=== PATIENT | male | born 1945 | race African-American/Black ===

== ENCOUNTER 2018-11-21 11:59 | Inpatient (IN) | payer OTHER, MEDICAID ==
[~2018-11-21] VITALS: Ht 182.9 cm; Wt 118.8 kg
[~2018-11-21 11:59] MED LIST: ALBU18HF2 IH; ASPI-1393 PO; ATOR10TA69 PO; CETI10TA6 PO; FLUT1DIS6 IH; FURO40TA5 PO; LOSA50TA41 PO; MONT10TA24 PO; P20 PO; ROFL500T PO; SENN-178 PO; UMEC1DIS IH
[2018-11-21] MEDS ORDERED: METHYLPREDNISOLONE SOD SUCC 125 MG/2 ML VIAL IV STA (13:01)
[2018-11-21] MEDS ORDERED: ALBUTEROL (0.083%) 2.5MG/3ML NEB HHN STA (13:01)
[2018-11-21 14:04] LABS: BASOPHILS % 0.4 % (0.0-2.0); EOSINOPHILS % 4.3 % (0.0-5.0); HEMATOCRIT. 40.5 % (42.0-52.0); HEMOGLOBIN. 13.2 g/dL (14.0-18.0); MEAN CORPUSCULAR HEMOGLOBIN 28.3 pg (28.0-32.0); MEAN CORPUSCULAR VOLUME 87.1 fL (80.0-94.0); MEAN PLATELET VOLUME 8.8 fl (7.4-10.4); MONOCYTES % 9.1 % (2.0-8.0); NEUTROPHILS % 59.2 % (40.0-76.0); PLATELET 174 x1000/uL (130-400); RED BLOOD CELL COUNT 4.65 mill/uL (4.7-6.1)
[2018-11-21 14:08] LABS: CHLORIDE 104 mEq/L (98-107)
[2018-11-21] MEDS ORDERED: ALBUTEROL (0.083%) 2.5MG/3ML NEB HHN ONE (17:30)
[2018-11-21] MEDS ORDERED: DEXTROSE 50% WATER 50ML SYRINGE IV PRN (18:45)
[2018-11-21] MEDS ORDERED: IPRATROPIUM/ALBUTEROL 0.5-3(2.5)MG/3ML NEB HHN PRN (19:00)
[2018-11-21] MEDS ORDERED: CEFTRIAXONE 1 G PREMIX 50 ML IV SCH (19:00)
[2018-11-21] MEDS ORDERED: NON FORMULARY PATIENT HOME MED XX SCH (19:15)
[2018-11-21 20:00] VITALS: BP 127/73
[2018-11-21] MEDS: IPRATROPIUM/ALBUTEROL 0.5-3(2.5)MG/3ML NEB HHN SCH (20:50)
[2018-11-21] MEDS: BUDESONIDE 0.5MG/2ML NEB HHN SCH (20:51)
[2018-11-21] MEDS: INSULIN LISPRO 100 UNITS/ML SUBCUT SCH (21:00)
[2018-11-21] MEDS: METHYLPREDNISOLONE SOD SUCC 40 MG/ML VIAL IV SCH (21:07)
[2018-11-21] MEDS: BLOOD SUGAR DIAGNOSTIC STRIP TEST SCH (21:12)
[2018-11-21] MEDS: CEFTRIAXONE 1,000 MG in DEXTROSE 5% WATER 50 ML IV SCH (21:23)
[2018-11-21 22:00] VITALS: BP 127/73
[2018-11-22] VITALS: BP 126/74
[2018-11-22] MEDS: IPRATROPIUM/ALBUTEROL 0.5-3(2.5)MG/3ML NEB HHN SCH ×6 (01:15→20:26)
[2018-11-22 04:00] VITALS: BP 112/64
[2018-11-22] MEDS: METHYLPREDNISOLONE SOD SUCC 40 MG/ML VIAL IV SCH ×3 (05:25→20:35)
[2018-11-22] MEDS: BLOOD SUGAR DIAGNOSTIC STRIP TEST SCH ×4 (06:34→20:35)
[2018-11-22] MEDS: INSULIN LISPRO 100 UNITS/ML SUBCUT SCH ×4 (06:35→20:51)
[2018-11-22] MEDS: BUDESONIDE 0.5MG/2ML NEB HHN SCH ×2 (08:52→20:26)
[2018-11-22] MEDS ORDERED: LOSARTAN POTASSIUM 50 MG TABLET PO SCH (09:00)
[2018-11-22] MEDS: LORATADINE 10MG TABLET PO SCH (09:47)
[2018-11-22] MEDS: ATORVASTATIN CALCIUM 10MG TABLET PO SCH (09:48)
[2018-11-22] MEDS: MONTELUKAST SODIUM 10MG TABLET PO SCH (09:48)
[2018-11-22] MEDS: ASPIRIN 81MG EC TABLET PO SCH (09:48)
[2018-11-22 12:00] VITALS: BP 122/57
[2018-11-22] MEDS: LISINOPRIL 20MG TABLET PO SCH (15:50)
[2018-11-22] MEDS: DOCUSATE SODIUM 250MG CAPSULE PO PRN (15:51)
[2018-11-22] MEDS: ENOXAPARIN 30MG/0.3ML SYR SUBCUT SCH (15:52)
[2018-11-22 16:00] VITALS: BP 119/62
[2018-11-22 20:00] VITALS: BP 103/50
[2018-11-22] MEDS: CEFTRIAXONE 1,000 MG in DEXTROSE 5% WATER 50 ML IV SCH (20:35)
[2018-11-23] VITALS: BP 114/62
[2018-11-23] MEDS: IPRATROPIUM/ALBUTEROL 0.5-3(2.5)MG/3ML NEB HHN SCH ×5 (00:06→15:41)
[2018-11-23] MEDS: DOCUSATE SODIUM 250MG CAPSULE PO PRN (00:21)
[2018-11-23 04:00] VITALS: BP 121/62
[2018-11-23 04:36] LABS: HEPATITIS B SURFACE ANTIGEN NEGATIVE
[2018-11-23 04:37] LABS: HEPATITIS B SURFACE ANTIGEN NEGATIVE
[2018-11-23 05:35] LABS: HEPATITIS B SURFACE AB 12.4 mIU/mL
[2018-11-23] MEDS: INSULIN LISPRO 100 UNITS/ML SUBCUT SCH ×3 (06:52→17:40)
[2018-11-23] MEDS: BLOOD SUGAR DIAGNOSTIC STRIP TEST SCH ×3 (06:52→17:10)
[2018-11-23] MEDS: METHYLPREDNISOLONE SOD SUCC 40 MG/ML VIAL IV SCH ×2 (06:54→13:10)
[2018-11-23] MEDS: ENOXAPARIN 30MG/0.3ML SYR SUBCUT SCH ×2 (06:54→17:41)
[2018-11-23 08:00] VITALS: BP 115/65
[2018-11-23 08:12] LABS: CLARITY URINE CLEAR (CLEAR); COLOR URINE YELLOW (YELLOW); KETONES URINE NEGATIVE (NEGATIVE); LEUKOCYTE ESTERASE URINE NEGATIVE (NEGATIVE); NITRITE URINE NEGATIVE (NEGATIVE); OCCULT BLOOD URINE NEGATIVE (NEGATIVE); PROTEIN URINE NEGATIVE (NEGATIVE); SPECIFIC GRAVITY URINE 1.015 (1.005-1.030); UROBILINOGEN URINE 0.2 E.U./dL (0.2-1.0)
[2018-11-23] MEDS: BUDESONIDE 0.5MG/2ML NEB HHN SCH (08:54)
[2018-11-23 09:00] LABS: CANNABINOID URINE SCREEN NEGATIVE (NEGATIVE); METHADONE URINE SCREEN NEGATIVE (NEGATIVE); OPIATES URINE SCREEN NEGATIVE (NEGATIVE); PHENCYCLIDINE URINE SCREEN NEGATIVE (NEGATIVE)
[2018-11-23 09:01] LABS: *AMPHETAMINES SCREEN URINE NEGATIVE (NEGATIVE); *BARBITURATES SCREEN URINE NEGATIVE (NEGATIVE); *BENZODIAZEPINES SCREEN URINE NEGATIVE (NEGATIVE); *COCAINE SCREEN URINE NEGATIVE (NEGATIVE)
[2018-11-23] MEDS: MONTELUKAST SODIUM 10MG TABLET PO SCH (09:25)
[2018-11-23] MEDS: ASPIRIN 81MG EC TABLET PO SCH (09:25)
[2018-11-23] MEDS: ATORVASTATIN CALCIUM 10MG TABLET PO SCH (09:25)
[2018-11-23] MEDS: LISINOPRIL 20MG TABLET PO SCH (09:25)
[2018-11-23] MEDS: LORATADINE 10MG TABLET PO SCH (09:25)
[2018-11-23 12:00] VITALS: BP 112/68
[2018-11-23 17:55] VITALS: BP 128/65
[2018-11-25 06:10] LABS: HIV SCREEN 4G Non Reactive (Non Reactive)
== END 2018-11-23 18:15 | disposition home or self-care (01) | DRG 192 ==
LOC: ER 11:59 → 8WST 17:17 → EDBEDREQTM 17:20 → EDBEDREQ 17:20 → ENRESERV 17:27
PROVIDERS: ADMIT Internal Medicine; ATTEND Internal Medicine
DX: J44.1 Chronic obstructive pulmonary disease with (acute) exacerbation (principal); D64.9 Anemia, unspecified; E11.9 Type 2 diabetes mellitus without complications; Z96.659 Presence of unspecified artificial knee joint; E87.5 Hyperkalemia; I10 Essential (primary) hypertension; Z87.891 Personal history of nicotine dependence; Z99.81 Dependence on supplemental oxygen
CPT/HCPCS: 36415; 71045; 80305; 81003; 82962; 83880; 84132; 84484; 87389; 93005; 94640; 96374; 99285; C1893; J0696; J1650; J1815; J2920; J2930; J7060; J7611; J7620; J7626